=== PATIENT | female | born 1995 | race Caucasian/White ===

== ENCOUNTER 2017-01-03 21:36 | Emergency (ER) | payer OTHER ==
[~2017-01-03] VITALS: Ht 152.4 cm; Wt 73.1 kg
[~2017-01-03 21:36] MED LIST: ABILIFY10 MG PO; ABILIFY5 MG PO; ADDERALL XR 1010 MG PO; ADDERALL10 MG PO; ADDERALL5 MG PO; CLINDAMYCIN HC300 MG PO; COLACE10 MG/ML PO; ENDOCET 5-3251 EACH PO; FLUOXETINE HCL20 MG PO; IBUPROFEN800 MG PO; KEFLEX500 MG PO; LORCET 5-325 M1 EACH PO; MOTRIN800 MG PO; MUPIROCIN15 GM TP; Motrin PO; Natalcare Rx,Pramile PO; PERCOCET 5/31 TABLET PO; PRENATAL TABLE1 EAC3 PO; PROZAC10 M1 PO; PROZAC10 MG PO; PROZAC20 MG PO; PYRIDIUM200 MG PO; Percocet 5/325,Endoc PO; SAPHRIS5 MG SL; TRAZODONE HCL50 MG PO; TYLENOL EXTRA500 MG PO; Theragran PO; ULTRAM50 MG PO; WOMEN'S DAILY1 EAC1 PO; ZOFRAN ODT4 MG PO; ZOFRAN4 MG PO; [UNRECOGNIZED DRUG - OTHER] PO
[2017-01-03 22:55] LABS: INFLUENZA A VIRAL ANTIGEN NEGATIVE; INFLUENZA B VIRAL ANTIGEN NEGATIVE
[2017-01-03] MEDS ORDERED: ZOFRAN ODT4 MG PO (23:11)
[2017-01-03 23:20] VITALS: BP 102/61
== END 2017-01-03 23:23 | disposition home or self-care (01) ==
LOC: EME 21:36
DX: T36.0X5A Adverse effect of penicillins, initial encounter (principal); R11.2 Nausea with vomiting, unspecified; R19.7 Diarrhea, unspecified
CPT/HCPCS: 87502; 99281; 99284

== ENCOUNTER 2017-03-13 11:39 | Emergency (ER) | payer OTHER ==
[~2017-03-13] VITALS: Ht 152.4 cm; Wt 70.9 kg
[2017-03-13] MEDS ORDERED: MULTIVITAMIN1 EAC2 PO (13:33)
[2017-03-13 16:09] VITALS: BP 113/55
== END 2017-03-13 16:10 | disposition home or self-care (01) ==
LOC: EME 11:39
DX: S05.12XA Contusion of eyeball and orbital tissues, left eye, initial encounter (principal); Y04.2XXA Assault by strike against or bumped into by another person, initial encounter; Z91.040 Latex allergy status
CPT/HCPCS: 70486; 99281; 99284